=== PATIENT | female | born 1955 | race Caucasian/White ===

== ENCOUNTER 2022-09-11 07:57 | Emergency (ER) | payer MEDICARE, OTHER ==
[~2022-09-11] VITALS: Ht 154.9 cm; Wt 56.7 kg
[2022-09-11] MEDS ORDERED: lisINopril 10 MG (PRINIVIL) TABLET PO STA (08:14)
--- NOTE | 2022-09-11 08:21 | ED General ---
General Chief Complaint: Cardiac/General Problems Stated Complaint: ELEV BP Nursing Triage Note: Patient reports she had an elevated blood pressure reading yesterday during a screening exam, and another elevated reading this morning on a re-check of her blood pressure at the walk-in clinic. She states she has been asymptomatic with the hyptertension and has no known history of hypertension. Source of Information: Patient History of Present Illness Date Seen by Provider: September 11, 2022 Time Seen by Provider: 08:00 Initial Comments 67-year-old female presenting with high blood pressure. She had recently had her insurance changed and was getting a checkup by the [employer] when they noted that her blood pressure was high. They had sent her to the urgent care yesterday for this and wanted her to come back again today. Her bl ood pressure was still high today and they had still not treated it so they sent her to the emergency department. She denied having any symptoms of high blood pressure such as headache, blurred vision, numbness or tingling, difficulty with speech, abdominal pain, chest pain, shortness of breath. Her blood pressure is high here in the emergency department at 223/59. She is on multiple medications that can cause low blood pressure but would want to at least start her on medicine to help bring the blood pressure down. Since she is asymptomatic with this and likely has been something that has been slowly climbing up and not a sudden change. She reports having blood work done with Dr. Morales recently around June and it was ok then. She has not had them tell her she had high blood pressure on previous visits. Timing/Duration: 1-2 Days Associated Systoms: No Chest Pain, No Cough, No Diaphoresis, No Fever/Chills, No Headaches, No Loss of Appetite, No Malaise, No Nausea/Vomiting, No Rash, No Seizure, No Shortness of Air, No Syncope, No Weakness Allergies and Home Medications Allergies Coded Allergies: No Known Drug Allergies (Unverified , 09/11/22) Patient Home Medication List Home Medication List Reviewed: Yes Lisinopril/Hydrochlorothiazide (Lisinopril-Hctz 10-12.5 mg Tab) 10 Mg-12.5 Mg Tablet, 1 EACH PO DAILY Prescribed by: DIANNA HOLDER on 09/11/22 0902 Review of Systems Review of Systems Constitutional: No chills, No diaphoresis, No dizziness, No fever, No malaise EENTM: No epistaxis Respiratory: No short of breath Cardiovascular: No chest pain, No edema, No palpitations Gastrointestinal: No abdominal pain, No nausea, No vomiting Genitourinary: No dysuria, No hematuria Musculoskeletal: no symptoms reported Skin: No rash Psychiatric/Neurological: Denies Headache, Denies Numbness, Denies Paresthesia, Denies Weakness Past Smpgegg-Kjnuqm-Ytltyi Hx Patient Social History Tobacco Use?: Yes Tobacco type used: Cigarettes Smoking Status: Current Everyday Smoker Use of E-Cig and/or Vaping dev: No Substance use?: No Alcohol Use?: Yes Alcohol Frequency: Rarely Pt feels they are or have been: No Immunizations Up To Date First/Initial COVID19 Vaccinat: YES Past Medical History Surgery/Hospitalization HX: Hypothyroidism; High cholesterol; neuropathy; GERD; Depression; Anxiety; Hep B, Hypertension Physical Exam Vital Signs Vital Signs - First Documented 09/11/22 08:00 Temp 36.8 Pulse 78 Resp 18 B/P (MAP) 227/61 (116) Pulse Ox 98 O2 Delivery Room Air Capillary Refill : Less Than 3 Seconds Height, Weight, BMI Height: '" Weight: lbs. oz. kg; 23.00 BMI Method: General Appearance: No Apparent Distress, WD/WN HEENT: PERRL/EOMI, TMs Normal, Normal ENT Inspection, Pharynx Normal Neck: Full Range of Motion, Normal Inspection, Non Tender, Supple Respiratory: Chest Non Tender, Lungs Clear, Normal Breath Sounds, No Accessory Muscle Use, No Respiratory Distress Cardiovascular: Regular Rate, Rhythm, Normal Peripheral Pulses Gastrointestinal: Normal Bowel Sounds, No Pulsatile Mass, Non Tender, Soft Rectal: Deferred Extremity: Normal Capillary Refill, Normal Inspection, Normal Range of Motion, Non Tender, No Calf Tenderness, No Pedal Edema Neurologic/Psychiatric: Alert, Oriented x3, No Motor/Sensory Deficits, Normal 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, 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 As patient states that she has recently had blood work and was not told there are any acute problems with the blood work will defer labs today. Administer lisinopril 10 mg p.o. x1 to help with the elevated blood pressure. Provided patient is tolerating this well and discharged with lisinopril hydrochlorothiazi de 10/12.5 mg 1 p.o. daily. Counseled patient to follow-up with the clinic within the next 1 to 2 weeks for blood pressure monitoring and to see if she was tolerating the medicine or if they would need to adjust dosage or try a different medication altogether. Progress Note #2: Time: 09:00 Progress Note Patient appears to be tolerating the lisinopril well without any immediate acute complication. Counseled to start the lisinopril/hydrochlorothiazide 10/12.5 mg once she picked it up from the pharmacy after they open at 10 AM. See about getting a blood pressure cuff either from [facility] today or through the [facility] clinic to monitor her blood pressures and keep a log at home so that she could bring that with her when she follows up with the clinic in the next 1 to 2 weeks. Encourage fluids and hydration. Counseled on side effects and risks with the lisinopril and hydrochlorothiazide especially in regards to combination with her medications. the mirtazapine and venlafaxine can cause blood pressure to drop dramatically and cause hypotension. She can have decreased effectiveness of bp meds from [facility]. Encouraged to monitor for side effects and symptoms and be seen immediately if having complications. Departure Impression Primary Impression: Hypertension Qualified Codes: I10 - Essential (primary) hypertension Disposition: HOME, SELF-CARE Condition: Stable Departure-Patient Inst. Decision time for Depature: 09:01 Referrals: KYLE MORALES MD (PCP) Primary Care Physician Patient Instructions: High Blood Pressure ED, Medicines for High Blood Pressure, High Blood Pressure Emergencies, DASH Diet, Controlling Your Blood Pressure Through Lifestyle Add. Discharge Instructions: Try to stay well-hydrated and drink plenty of fluids. Start the new blood pressure medicine today after you pick it up from the pharmacy. Return to be seen immediately if you are having headache, feeling lightheaded, blurred vision, chest pains, shortness of breath, numbness or tingling in your arms or legs. Follow-up through the [facility] clinic tomorrow to see if they have a blood pressure cuff to be able to do readings at home. Also make an appointment either with Dr. Morales or one of the providers so that you can follow up on the blood pressure and the new medicine. You should make an appointment within the next 1 to 2 weeks to recheck your blood pressure and see how you are tolerating the medicine. Sometimes the medicine has to be increased in dosage to get better blood pressure control and sometimes you have to be switched to an all new blood pressure medicine. All discharge instructions reviewed with patient and/or family. Voiced understanding. Scripts Lisinopril/Hydrochlorothiazide (Lisinopril-Hctz 10-12.5 mg Tab) 10 Mg-12.5 Mg Tablet 1 EACH PO DAILY for high blood pressure for 30 Days, #30 TAB 0 Refills Prov: DIANNA HOLDER MD 09/11/22 DIANNA HOLDER MD September 11, 2022 08:21
[2022-09-11] MEDS ORDERED: LISI1TAB44 PO (09:02)
[2022-09-11 09:08] VITALS: BP 238/62
== END 2022-09-11 09:09 | disposition home or self-care (01) ==
LOC: ER FS 07:59
DX: I10 Essential (primary) hypertension (principal); F17.210 Nicotine dependence, cigarettes, uncomplicated; Z28.311 Partially vaccinated for COVID-19
CPT/HCPCS: 99283